=== PATIENT | female | born 1985 | race Caucasian/White ===

== ENCOUNTER 2017-07-06 20:13 | Emergency (ER) | payer MEDICAID, SELFPAY ==
[2017-07-06 20:14] VITALS: BP 131/91; PULSE 112; RESP 24; TEMP 37.1; O2SAT 99; BMI 44.8
--- NOTE | 2017-07-06 20:44 | RAD_ITS ---
STUDY: X-RAY - RIGHT FOOT CLINICAL: Female, 31 years old. Pain, injury TECHNIQUE: 3 view(s) of the foot. COMPARISON: None. FINDINGS: Normal talus, calcaneus, and tarsal bones. Normal visualized subtalar, talonavicular, calcaneocuboid, tarsal and tarsometatarsal articulations. Normal metatarsi. Normal metatarsophalangeal joint of the great toe. Normal tibial and fibular sesamoid bones. Normal interphalangeal joint of the great toe. Normal phalanges of the great toe. Normal second through fifth metatarsophalangeal joints. Normal interphalangeal joints and phalanges of the lesser toes. The soft tissue structures are unremarkable. RAD/Foot min 3 Views IMPRESSION: No fracture Electronically Signed: Gilmer Harden MD at 21:23 EST Tel , Service support ,
--- NOTE | 2017-07-06 20:44 | RAD_ITS ---
STUDY: X-RAY - RIGHT TIBIA AND FIBULA REASON FOR EXAM: Female, 31 years old. Pain, injury TECHNIQUE: 2 view(s) of the tibia and fibula were obtained. COMPARISON: None. FINDINGS: Normal visualized tibia. Normal visualized fibula. The soft tissue structures are unremarkable. RAD/Tibia & Fibula 2 Views IMPRESSION: Normal x-ray examination of the tibia and fibula. Electronically Signed: Gilmer Harden MD at 21:23 EST Tel , Service support ,
[2017-07-06] MEDS: Naproxen 500 MG Tablet PO (20:59)
--- NOTE | 2017-07-06 21:25 | ED.DCSUM_ITS ---
- ER Visit Summary Date of Service: 07/06/17 Chief Complaint: Fall History of Present Illness: The patient is a 31 F who reports rolling her ankle and falling down 2 steps tonight. Patient presented on crutches. She has not taken anything for pain. Denies any other injury from her fall. Physical Examination: Vital signs are gross unremarkable. Head neck examination is unremarkable with no sign of trauma. Heart is regular rate and rhythm. Lung sounds are clear. Abdomen is soft nontender. Pelvis is stable. Lower extremity examination on the right reveals diffuse tenderness throughout the right tib-fib, foot, and ankle. There is no edema or ecchymosis noted. Left lower extremity is normal. Strong distal pulses are noted throughout. Test Results: Right tib-fib and right foot x-rays are obtained. Per my read there is no fracture. Emergency Department Course and Treatment: Patient was given Naprosyn here. She be given an air stirrup splint for her ankle. She orally has crutches to use. She will be referred to orthopedics if not improving. Treatment Plan: [] Disposition: Discharge Impression: Mechanical fall with right ankle sprain This note was generated with [employer] dictation software. It may contain incorrect words, spelling, and punctuation that were not noted in review of the chart prior to signing ED Disposition - Plan for ED Patient: Chief Complaint: Fall Referrals: Care Physician,No Primary [Primary Care Provider] -
--- NOTE | 2017-07-06 21:25 | ED.DEP ---
ED Disposition - Plan for ED Patient: Disposition: Home or Assisted Living Chief Complaint: Fall Instructions: ED Sprain Ankle W X Ray Prescriptions: Naproxen [Naprosyn] 500 mg PO BID PRN #20 tablet Referrals: Ryan Bee MD [STAFF PHYSICIAN] - As Needed
[2017-07-06 21:42] VITALS: BP 139/74; PULSE 91; RESP 18; O2SAT 97
== END 2017-07-06 21:46 | disposition home or self-care (01) ==
PROVIDERS: Emergency Provider Emergency Medicine
DX: S93.401A Sprain of unspecified ligament of right ankle, initial encounter (principal); W10.9XXA Fall (on) (from) unspecified stairs and steps, initial encounter; Y93.9 Activity, unspecified; Y92.9 Unspecified place or not applicable; J45.909 Unspecified asthma, uncomplicated; K21.9 Gastro-esophageal reflux disease without esophagitis; Z79.899 Other long term (current) drug therapy; Z72.0 Tobacco use
CPT/HCPCS: 73590; 73630; 99282

== ENCOUNTER 2017-08-21 18:41 | Emergency (ER) | payer MEDICAID, SELFPAY ==
[2017-08-21 18:42] VITALS: BP 144/89; PULSE 101; RESP 17; TEMP 36.8; O2SAT 98; BMI 47.0
--- NOTE | 2017-08-21 19:04 | RAD_ITS ---
STUDY: X-RAY - LEFT HAND REASON FOR EXAM: Female, 32 years old. Pain. Swelling. TECHNIQUE: 3 view(s) of the hand. COMPARISON: None. FINDINGS: Normal radiocarpal articulation. Normal distal radioulnar joint. Normal visualized carpal bones. Normal carpal articulations Normal carpometacarpal articulation of the thumb. Normal second through fifth carpometacarpal joints. Normal metacarpi. Normal metacarpophalangeal joint of the thumb. Normal interphalangeal joint of the thumb. Normal proximal and distal phalanges of the thumb. Normal metacarpophalangeal joints of the second through fifth fingers. Normal proximal and distal interphalangeal joints of the second through fifth fingers. Normal phalanges of the second through fifth fingers. There is dorsal soft tissue swelling. RAD/Hand Min 3 Views IMPRESSION: No acute fracture or dislocation. Dorsal soft tissue swelling. Electronically Signed: Gabe Pro MD at 19:37 EDT , Service support ,
--- NOTE | 2017-08-21 19:08 | ED.DCSUM_ITS ---
- ER Visit Summary Date of Service: 08/21/17 Chief Complaint: Left hand pain History of Present Illness: The patient is a 32 F who had spontaneous onset of a tender swollen area in her left hand palm 1 week ago, she states she woke up with it looked like a pimple, it started gradually worsening to the point where 2 days later she went to a different emergency department in [place], they placed her on clindamycin, which she has been taking for the last 4 days, and she has been opening the wound daily by herself with sterilized needles and scissors except she has not today. Each time she has opened it, she gets out blood and pus. She denies any systemic symptoms or fevers, she is not a diabetic. Her entire hand is swollen now, excluding her fingers, it is at the base of her middle fingers and she has a lot of trouble moving it because of pain, and the pain is radiating up her forearm. She denies any chance of injury or foreign body causing this. She ED notes that her daughter has had MRSA about 2 or 3 times. Physical Examination: Keenly alert and oriented ?3, vital signs remarkable only for a mild tachycardia. Patient is anxious, actively video chatting with someone else throughout the entire HPI and exam. She is in no distress. She has what appears to be a pustule with an underlying 2 cm abscess on the palmar left hand just proximal to the base of the left long finger. Significant pain with flexing either the FDS or the FDP of the third digit. There is no lymphangitis. There is surrounding erythema only 1-2 cm away from the central pustule, there is no active discharge when I palpate. The dorsum of her entire hand is swollen, it does not include her fingers or proximally. She has full range of motion of the wrist and elbow and no epitrochlear lymphadenopathy. She has no tenderness along the distribution of the flexor tendon sheaths and there is no erythema associated with it. Test Results: Three-view x-ray of the hand shows no foreign body or bone involvement. Just soft tissue swelling. Emergency Department Course and Treatment: Patient has an abscess in her hand, high advised I&D. She was amenable. She agreed to having a median nerve block beforehand, which was done by myself, just ulnar to the palmaris longus at the volar wrist crease. A total of 1 cc of plain 1% lidocaine was placed, the patient tolerated it well and partial anesthesia was obtained, she refused to undergo further attempts. She was amenable to I&D using an 11 blade regardless. This was performed, quickly, but the patient jerked her hand although I was holding it, there was a large amount of purulent discharge expressed. It was soaked in sterile saline with a small amount of chlorhexidine , and then it was dried and a sterile bacitracin dressing was placed. She was advised to continue twice daily soapy soaks. She was given a dose of vancomycin 15 mg/kg, as MRSA is highly suspected. She is advised to discontinue her clindamycin and instead I am prescribing her Bactrim which she is not allergic to. She is given a Percocet here due to the pain, and a prescription for 6 more. Treatment Plan: As above including close outpatient plastics follow-up, since that is the specialty that sees hand patients locally, if she is not improving in the next 3-5 days. Disposition: Discharge home Impression: Left hand abscess Simple abscess incision and drainage Median nerve block This note was generated with [employer] dictation software. It may contain incorrect words, spelling, and punctuation that were not noted in review of the chart prior to signing ED Disposition - Plan for ED Patient: Disposition: Home or Assisted Living Chief Complaint: Cellulitis Instructions: ED Abscess IandD Prescriptions: Oxycodone HCl/Acetaminophen [Percocet 5/325] 1 tab PO Q6H PRN PRN 2 Days #6 tab PRN Reason: Pain Smz/Tmp Ds [Bactrim Ds] 1 tab PO BID #20 tab Referrals: Omar James MD [STAFF PHYSICIAN] - 3-5 Days if not improving Additional Instructions: -Soak your hand in warm-hot, soapy water 2x/day until no discharge or bleeding. -Discontinue clindamycin. Instead, take new antibiotic. -Keep wound covered w/ gauze bandage.
[2017-08-21] MEDS: Smz/Tmp Ds Tablet 1 TABLET PO (19:11)
[2017-08-21 21:07] VITALS: BP 99/74; PULSE 78
--- NOTE | 2017-08-21 22:18 | ED.RN ---
wound to left palm I&D by Dr. Paulino. tearful.
[2017-08-21] MEDS: oxyCODONE 5 MG Tablet PO (22:22)
== END 2017-08-21 22:29 | disposition home or self-care (01) ==
PROVIDERS: Emergency Provider Emergency Medicine
DX: L02.512 Cutaneous abscess of left hand (principal); J45.909 Unspecified asthma, uncomplicated; K21.9 Gastro-esophageal reflux disease without esophagitis; F32.9 Major depressive disorder, single episode, unspecified; M54.9 Dorsalgia, unspecified; G89.29 Other chronic pain; M54.30 Sciatica, unspecified side; Z79.899 Other long term (current) drug therapy; Z72.0 Tobacco use
CPT/HCPCS: 10060; 73130; 96365; 96366; 99284; A4216